=== PATIENT | female | born 1990 | race Two or more races ===

== ENCOUNTER 2016-05-15 07:42 | Emergency (ER) | payer OTHER ==
[2016-05-15] MEDS ORDERED: IOPAMIDOL 370 (76%) 100 ML VIAL IV ONE (07:43)
[2016-05-15] MEDS ORDERED: LACTATED RINGERS 1,000 ML ONE (07:59)
[2016-05-15] MEDS ORDERED: ONDANSETRON 4 MG/2ML 2 ML VIAL ONE ×2 (07:59→09:57)
[2016-05-15 08:16] LABS: ABSOLUTE NEUTROPHIL COUNT 11.7 K/mm3 (1.8-7.7); BASO % 0.2 % (0.2-1.0); EOS % 0.2 % (0.9-2.9); HEMOGLOBIN 10.1 gm/l (12.0-16.0); IMM NEUT # 0.1 K/mm3 (0-0.2); IMM NEUT% 0.4 % (0-1); LYMPH # 0.7 (1.0-4.8); LYMPH % 5.7 % (15-45); MEAN CELL VOLUME 68.5 fl (81.0-99.0); MEAN CORPUSCULAR HEMOGLOBIN 20.4 pg (27.0-31.0); MEAN CORPUSCULAR HGB CONC 29.7 g/dl (33.0-37.0); MEAN PLATELET VOLUME 9.6 fl (7.4-10.4); MONO # 0.6 (0.0-0.8); MONO % 4.4 % (4-12); NEUT % 89.1 % (43-75); PLATELET COUNT 332 K/mm3 (130-400); RED CELL DISTRIBUTION WIDTH 16.1 % (11.5-14.5)
[2016-05-15] MEDS ORDERED: ACETAMINOPHEN 500 MG TABLET ONE (08:21)
[2016-05-15] MEDS ORDERED: HYDROMORPHONE HCL 0.5 MG/0.5 ML SYRINGE ONE ×2 (08:21→09:57)
[2016-05-15 08:29] LABS: ALB/GLOB RATIO 1.3 (>1.0); ALBUMIN 4.6 gm/dL (3.5-5.7); CALCIUM 9.5 mg/dL (8.6-10.3)
[2016-05-15 09:10] LABS: ANISOCYTOSIS 1+; PLATELET ESTIMATE NORMAL (NORMAL)
[2016-05-15 09:42] LABS: SPECIFIC GRAVITY 1.015 (1.001-1.030); URINE BILIRUBIN NEGATIVE (NEGATIVE); URINE BLOOD NEGATIVE (NEGATIVE); URINE GLUCOSE (UA) NEGATIVE (NEGATIVE); URINE LEUKOCYTE ESTERASE NEGATIVE (NEGATIVE); URINE NITRITE NEGATIVE (NEGATIVE); URINE PROTEIN NEGATIVE (NEGATIVE); URINE UROBILINOGEN NORMAL (0-1 mg/dl)
[2016-05-15 09:49] LABS: HCG,QUALITATIVE URINE NEGATIVE
[2016-05-15 09:53] LABS: URINE APPEARANCE CLEAR; URINE COLOR YELLOW
--- NOTE | 2016-05-15 10:34 | CT ---
CT ABDOMEN AND PELVIS WITH CONTRAST HISTORY: Epigastric pain, vomiting, fever. TECHNIQUE: Following intravenous administration of 100cc of Isovue-370, contiguous axial images were acquired from the lung bases to the ischial tuberosities. Oral contrast was not administered. COMPARISON:None. FINDINGS: LUNG BASES: No gross airspace consolidation or pleural effusion. LIVER: No focal lesion. SPLEEN: No focal lesion. PANCREAS: No focal lesion. ADRENAL GLANDS: No mass effect. KIDNEYS: No focal lesion. No collecting system dilatation. GALLBLADDER: Present. BOWEL: Moderate fecal loading. Limited assessment of the distal colon due to decompression. No abnormal small bowel dilatation. APPENDIX: Normal gas-filled appendix. PELVIC ORGANS: No gross mass effect. FREE FLUID: Minimal pelvic free fluid. ABDOMINOPELVIC LYMPH NODES: Small retroperitoneal and mesenteric lymph nodes. ABDOMINAL AORTA: Normal caliber. OSSEOUS STRUCTURES: Moderate disc space narrowing at L5-S1. IMPRESSION: 1. Nonobstructive, noninflammatory appearance of bowel. Normal appendix. 2. Minor pelvic free fluid, which is nonspecific but can be physiologic in a female patient of this age group. 3. Nonenlarged mesenteric lymph nodes, mesenteric adenitis possible. Results were electronically transmitted to the electronic medical record at 05/15/2016 at 1030 hours.
[2016-05-15] MEDS ORDERED: KETOROLAC TROMETHAMINE 15 MG/ML VIAL ONE (10:53)
== END 2016-05-15 12:05 | disposition home or self-care (01) ==
LOC: ED 07:42
DX: R10.13 Epigastric pain (principal); R11.2 Nausea with vomiting, unspecified